=== PATIENT | female | born 1980 | race Caucasian/White ===

== ENCOUNTER → 2016-06-27 | Outpatient (CLI) | payer BC | LOC: CIMAGING 13:35 | PROVIDERS: ATTEND Family Medicine | DX: R51 Headache (principal) | CPT/HCPCS: 70220-PO ==

== ENCOUNTER → 2016-08-08 | Outpatient (CLI) | payer BC | LOC: CIMAGING 14:15 | PROVIDERS: ATTEND Family Medicine | DX: M54.2 Cervicalgia (principal) | CPT/HCPCS: 72040-PO ==

== ENCOUNTER → 2016-11-02 | Outpatient (CLI) | payer BC | LOC: CIMAGING 07:12 | PROVIDERS: ATTEND Family Medicine | DX: R10.32 Left lower quadrant pain (principal); R10.12 Left upper quadrant pain | CPT/HCPCS: 76700-PO; 76856-PO ==

== ENCOUNTER → 2018-05-22 | Outpatient (CLI) | payer BC | LOC: EMCIMAGING 10:18 | PROVIDERS: ATTEND Family Medicine | DX: R10.12 Left upper quadrant pain (principal); R10.32 Left lower quadrant pain; D25.2 Subserosal leiomyoma of uterus; N83.01 Follicular cyst of right ovary | CPT/HCPCS: 76770-PN; 76856-PN ==